=== PATIENT | male | born 1960 | race Caucasian/White ===

== ENCOUNTER 2022-07-19 07:55 | Outpatient (CLI) | payer OTHER, SELFPAY | END 2022-07-19 07:56 | disposition home or self-care (01) | LOC: NFLDREF 07-27 11:44 | PROVIDERS: PCP Internal Medicine; Referring Provider Internal Medicine; Visit Provider Internal Medicine | DX: E78.5 Hyperlipidemia, unspecified (principal); Z79.01 Long term (current) use of anticoagulants | CPT/HCPCS: 80061 ==

== ENCOUNTER 2023-08-01 08:00 | Outpatient (CLI) | payer OTHER, SELFPAY | END 2023-08-01 08:01 | disposition home or self-care (01) | LOC: NFLDREF 12:48 | PROVIDERS: PCP Internal Medicine; Referring Provider Internal Medicine; Visit Provider Internal Medicine | DX: E78.5 Hyperlipidemia, unspecified (principal); Z12.5 Encounter for screening for malignant neoplasm of prostate | CPT/HCPCS: 80061; G0103 ==

== ENCOUNTER 2024-08-04 07:58 | Outpatient (CLI) | payer BC, SELFPAY | END 2024-08-04 07:59 | disposition home or self-care (01) | LOC: NFLDREF 08-05 03:31 | PROVIDERS: PCP Internal Medicine; Referring Provider Internal Medicine; Visit Provider Internal Medicine | DX: E78.5 Hyperlipidemia, unspecified (principal); Z95.2 Presence of prosthetic heart valve | CPT/HCPCS: 80061 ==

== ENCOUNTER 2024-09-17 10:58 | Outpatient (CLI) | payer BC, SELFPAY ==
--- NOTE | 2024-09-17 12:19 | P.ANES_ITS ---
Anesthesia Charges Start Date/Time Anesthesia Start Date: 09/17/24 Anesthesia Start Time: 11:50 Stop Date/Time Anesthesia Stop Date: 09/17/24 Anesthesia Stop Time: 12:20 Coding CPT Codes CPT Codes: ANES LWR INTST SCR COLSC - 07271 ([id number]) P3 - PATIENT W/SEVERE SYS DISEASE, QX - INFORMATION DEVELOPER SVC W/ MD MED DIRECTION, QK - CAP SEWER 2-4 CNCRNT ANES PROC
--- NOTE | 2024-09-17 12:19 | W.ANESCHARGE ---
Anesthesia Charges Start Date/Time Anesthesia Start Date: 09/17/24 Anesthesia Start Time: 11:50 Stop Date/Time Anesthesia Stop Date: 09/17/24 Anesthesia Stop Time: 12:20 Coding CPT Codes CPT Codes: ANES LWR INTST SCR COLSC - 59330 ([id number]) P3 - PATIENT W/SEVERE SYS DISEASE, QX - BOOM SUPERVISOR SVC W/ MD MED DIRECTION, QK - DOUGH PANNER 2-4 CNCRNT ANES PROC
--- NOTE | 2024-09-17 12:51 | P.ANES_ITS ---
Anesthesia Charges Start Date/Time Anesthesia Start Date: 09/17/24 Anesthesia Start Time: 11:50 Stop Date/Time Anesthesia Stop Date: 09/17/24 Anesthesia Stop Time: 12:20 Coding CPT Codes CPT Codes: ANES LWR INTST SCR COLSC - 91741 ([id number]) QK - TANGIBLE PERSONAL PROPERTY APPRAISER 2-4 CNCRNT ANES PROC, QX - CARBON BLOCKS PRESS OPERATOR SVC W/ MED DIRECTION, P3 - PATIENT W/SEVERE SYS DISEASE
--- NOTE | 2024-09-17 12:51 | W.ANESCHARGE ---
Anesthesia Charges Start Date/Time Anesthesia Start Date: 09/17/24 Anesthesia Start Time: 11:50 Stop Date/Time Anesthesia Stop Date: 09/17/24 Anesthesia Stop Time: 12:20 Coding CPT Codes CPT Codes: ANES LWR INTST SCR COLSC - 68594 ([id number]) QK - [place] 2-4 CNCRNT ANES PROC, QX - VP DIRECTOR OF FINANCE SVC W/ MED DIRECTION, P3 - PATIENT W/SEVERE SYS DISEASE
== END 2024-09-17 10:59 | disposition home or self-care (01) ==
LOC: OP CLINIC 11:00
PROVIDERS: PCP Internal Medicine; Visit Provider Internal Medicine Gastroenterology
DX: Z12.11 Encounter for screening for malignant neoplasm of colon (principal); K57.30 Diverticulosis of large intestine without perforation or abscess without bleeding
CPT/HCPCS: 00812; 45378; J2704

== ENCOUNTER 2024-10-06 14:16 | Outpatient (CLI) | payer BC, SELFPAY ==
--- NOTE | 2024-10-06 14:30 | CRLHL7_ITS ---
For Patients: As a result of the Cures Act, medical imaging exams and procedure reports are released immediately into your electronic medical record. You may view this report before your referring provider. If you have questions, please contact your health care provider. INDICATION: Parkinsonism. TECHNIQUE: Multisequence multiplanar MRI of the brain without the use of intravenous contrast. COMPARISON: MRI brain dated 01/26/2015. FINDINGS: No evidence of acute ischemia. Stable chronic infarct involving the right postcentral gyrus. Additional stable chronic cerebellar lacunar type infarcts. Slight increase in scattered foci of T2 prolongation elsewhere within the supratentorial white matter. Unchanged punctate foci of susceptibility artifact within the right frontal lobe, left thalamus, and left cerebellum. The ventricles are unchanged in size. There is similar mild diffuse parenchymal volume loss. Flow voids of the larger intracranial arteries are preserved. Bone marrow signal intensity of the calvarium is within normal limits. The globes are symmetric. The paranasal sinuses and mastoid air cells are predominantly clear. IMPRESSION: 1. No acute intracranial abnormality. 2. Similar mild diffuse parenchymal volume loss and chronic small vessel ischemic changes. 3. Stable chronic infarct involving the right postcentral gyrus and stable chronic cerebellar lacunar type infarcts. 4. Unchanged scattered foci of susceptibility artifact consistent with sequela of prior microhemorrhages. Dictated by Timur Armendariz MD @ 10/06/2024 4:04:41 PM (Electronically Signed)
== END 2024-10-06 14:17 | disposition home or self-care (01) ==
PROVIDERS: PCP Internal Medicine; Visit Provider Psychiatry & Neurology Neurology
DX: G20.C Parkinsonism, unspecified (principal); I67.82 Cerebral ischemia; Z86.73 Personal history of transient ischemic attack (TIA), and cerebral infarction without residual deficits
CPT/HCPCS: 70551

== ENCOUNTER 2024-10-20 09:20 | Outpatient (CLI) | payer BC, SELFPAY | END 2024-10-20 09:21 | disposition home or self-care (01) | LOC: NFLDREF 19:43 | PROVIDERS: PCP Internal Medicine; Referring Provider Internal Medicine; Visit Provider Internal Medicine | DX: Z79.01 Long term (current) use of anticoagulants (principal); Z95.2 Presence of prosthetic heart valve | CPT/HCPCS: 85610 ==

== ENCOUNTER 2024-11-03 08:29 | Outpatient (CLI) | payer BC, SELFPAY | END 2024-11-03 08:30 | disposition home or self-care (01) | LOC: NFLDREF 11-07 01:38 | PROVIDERS: PCP Internal Medicine; Referring Provider Internal Medicine; Visit Provider Internal Medicine | DX: Z79.01 Long term (current) use of anticoagulants (principal) | CPT/HCPCS: 85610 ==

== ENCOUNTER 2024-11-13 08:25 | Outpatient (CLI) | payer BC, SELFPAY | END 2024-11-13 08:26 | disposition home or self-care (01) | LOC: NFLDREF 11-17 14:36 | PROVIDERS: PCP Internal Medicine; Referring Provider Internal Medicine; Visit Provider Internal Medicine | DX: Z79.01 Long term (current) use of anticoagulants (principal); Z95.2 Presence of prosthetic heart valve | CPT/HCPCS: 85610 ==

== ENCOUNTER 2025-03-05 08:30 | Outpatient (CLI) | payer BC, SELFPAY | END 2025-03-05 08:31 | disposition home or self-care (01) | LOC: NFLDREF 03-10 10:31 | PROVIDERS: PCP Internal Medicine; Referring Provider Internal Medicine; Visit Provider Internal Medicine | DX: Z95.2 Presence of prosthetic heart valve (principal); Z79.01 Long term (current) use of anticoagulants | CPT/HCPCS: 85610 ==

== ENCOUNTER 2025-03-19 08:15 | Outpatient (RCR) | payer BC, SELFPAY ==
--- NOTE | 2025-02-17 14:25 | PT.OPEX ---
PT [facility] Outpatient Eval PT [facility] Outpatient Eval Start: 02/17/25 08:43 Freq: Status: Active Protocol: Document 02/17/25 08:49 HLA (Rec: 02/17/25 14:23 HLA [id number]) E-signed By Ruchi Odonnell, PT, DPT Physical Therapy Outpatient Evaluation Insurance Information Recert Due Date 05/17/25 Insurance Name [employer] Medical Diagnosis Parkinsonism Treating Diagnosis Parkinson's with tremors L hand, L LE, loss of dexterity, foot tremors. No concerns with walking, some twitching. +loss of smell. Sx started 2022, dx by [facility]. Imaging Report brain MRI shows lacunar cerebellar infarcts Information Referring MD [place] Subjective Preferred Name Subjective arrives with his spouse Nohemy. He presents with flat affect, moderate voice volume, L hand tremors throughout session and L foot tremors with testing. notes 2 year hx of L arm stiffness, hand tremors. He is retired, walks 4 miles/day with his and their lab. Moves quickly, HR gets up to 110 but he is on meds to keep his heart rate down. He wants to learn as much as he can about Parkinsonism since he was recently dx at [facility]. He takes .5 Resagaline daily, early am. Notes it has resulted in 50 % reduction in tremors L hand. Pain Comments denies pain Occupation retired employee of [employer] Precautions Treatment Warfarin use Precautions/ Contraindications Weight Bearing Weight Bear as Tolerated Status Objective Range of Motion AROM full B UEs, LEs. Mild neck stiffness L SCM, decreased right trunk rotation 20% otherwise WNL Strength 5/5 UEs/LEs Swelling no edema noted Palpation no pain on palpation Balance & Gait Gait lacks L arm swing, some slight shldr elevation on L, good foot clearance and stride length, equal step length. Stairs reciprocal CHONG 54/56 shows low fall risk TUG 6.88 sec, low fall risk Posture mild stiffness of L shldr, slightly fwd head Sensation/Reflexes intact to light touch Other/Pertinent Coordination decreased L UE, L LE with tapping Objective Assessment Assessment/ is a 64-year-old male with 2-year hx of L sided Impression tremors mainly L hand/fingers and now his foot. He is retired, active, enjoys walking 4 miles/day, exercising with his and his dog. No concerns with ADLS, takes longer to button and tie shoes, but ind. Occ difficulties swallowing pills, no choking with foods/ beverages. Voice moderate in volume. Flat affect with conversation. PMHx includes heart valve replacement, chronic Warfarin use and cerebellar lacunar infarcts. He is interested in the Parkinson's BIG Program and anything he can do to be more active and prevent decline with his recent neuro dx. Pt presents with full AROM UEs/LEs, mild stiffness L SCM and lumbar rotation . Strength 5/5. Decreased coordination L hand and L foot with tapping. Sensation/proprioception intact. Transfers ind, no difficulty. Amb with decreased L arm swing, slight elevation of shldr, stairs reciprocal and ind. Balance testing shows low fall risk. Introduced principles of BIG ex via [facility] Parkinson's program, pt quickly learning ex. Worked with him on amb; reciprocal arm swing L UE and turning his head more readily. Tremors noted throughout session L hand. Pt to see neuro again next month and will assess his meds at that time. he takes .5 mg Resagaline each am. Pt would benefit from 4 sessions of PT to work on stretching, Parkinson's ex and amb program to increase L sided arm swing, reduce stiffness overall. He would not require intensive BIG program at this time. Pt agreeable to plan to cont with PT. Plan of Care Rehabilitation Good Potential Physical Therapy Within 4-6 sessions Goals 1.Pt will demonstrate full L UE arm swing with gt with no prompting x 1000 feet, adding in dual tasking challenges. 2. Pt will be ind in Parkinson's ex program to increase amplitude of movement, reduce bradykinesia and reduce overall sx of stiffness. 3. Pt will be able to tie shoes in <10 sec for agility L hand. Coordination/ Referral Source,Patient Caregiver Communication With Treatment Plan/ Gait Training,Heat,Ice/Cold/Vasopneumatic,Joint Direct Interventions Mobilization,Manual Therapy,Neuromuscular Re-ed,Self- Care/Home Management,Therapeutic Activities,Therapeutic Exercises Frequency/Duration 1x/week x 4-6 weeks Patient Will Be Completion of LTG(s),Independent w/HEP Discharged From Therapy Evaluation Billing Untimed Code 30 Treatment Minutes PT Eval No Charge No Complexity Low Certification Information Initial 02/17/25 Certification Date Ending Certification 05/17/25 Date Provider Signature Yes Required Provider Signature POC & Medical Necessity Shows Agreement With Physician NPI Number Write NPI# Here Physician Comment/ : Change Physician Signature Please Sign/Date Here & Date Requested
== END 2025-03-19 10:12 | disposition home or self-care (01) ==
PROVIDERS: PCP Internal Medicine; Visit Provider Internal Medicine
DX: G20.C Parkinsonism, unspecified (principal); Z51.89 Encounter for other specified aftercare
CPT/HCPCS: 97110; 97112; 97161

== ENCOUNTER 2025-04-06 08:45 | Outpatient (CLI) | payer BC, SELFPAY | END 2025-04-06 08:46 | disposition home or self-care (01) | LOC: NFLDREF 04-09 07:13 | PROVIDERS: PCP Internal Medicine; Referring Provider Internal Medicine; Visit Provider Internal Medicine | DX: Z95.2 Presence of prosthetic heart valve (principal); Z79.01 Long term (current) use of anticoagulants | CPT/HCPCS: 85610 ==

== ENCOUNTER 2025-05-04 13:13 | Outpatient (CLI) | payer BC, SELFPAY | END 2025-05-04 13:14 | disposition home or self-care (01) | LOC: FRMREF 13:16 | PROVIDERS: PCP Internal Medicine; Visit Provider Physician Assistant Medical | DX: R10.30 Lower abdominal pain, unspecified (principal) | CPT/HCPCS: 80053 ==

== ENCOUNTER 2025-05-07 22:39 | Outpatient (CLI) | payer BC, SELFPAY | END 2025-05-07 22:40 | disposition home or self-care (01) | LOC: AMB 05-26 09:43 | PROVIDERS: PCP Internal Medicine; Visit Provider Emergency Medicine | DX: I46.9 Cardiac arrest, cause unspecified (principal); R10.9 Unspecified abdominal pain | CPT/HCPCS: A0429 ==